=== PATIENT | female | born 1980 ===

== ENCOUNTER 2018-03-01 08:53 | Day surgery (SDC) | payer OTHER ==
[2018-02-27 08:39] VITALS: BMI 28.1
[2018-03-01 09:52] VITALS: BP 123/76; PULSE 71; RESP 18; TEMP 98.1; O2SAT 99
== END 2018-03-01 10:30 | disposition home or self-care (01) ==
LOC: C.SDS 08:53
PROVIDERS: ATTEND Student in an Organized Health Care Education/Training Program
DX: Z53.9 Procedure and treatment not carried out, unspecified reason (principal); S83.232D Complex tear of medial meniscus, current injury, left knee, subsequent encounter; M67.862 Other specified disorders of synovium, left knee; M79.4 Hypertrophy of (infrapatellar) fat pad; M94.262 Chondromalacia, left knee

== ENCOUNTER 2018-03-22 08:11 | Day surgery (SDC) | payer OTHER ==
[2018-02-27 08:39] VITALS: BMI 28.1
[2018-03-22] MEDS ORDERED: ceFAZolin 1 gm FROZEN Premix 2 GM/100 ML ML IVPB ONE (12:14)
[2018-03-22] MEDS ORDERED: Midazolam 2 MG/2 ML VIAL ONE (12:32)
[2018-03-22] MEDS ORDERED: Propofol 10 mg/ml Inj (20 ML) ONE (12:32)
[2018-03-22] MEDS ORDERED: Rocuronium 10 mg/ml (10 ml) ONE (12:32)
[2018-03-22] MEDS ORDERED: Lidocaine Hydrochloride 5 ML INJ ONE (12:39)
[2018-03-22] MEDS ORDERED: ePHEDrine 50 mg/ml Inj ONE (13:46)
[2018-03-22] MEDS ORDERED: Neostigmine Methylsulfate 3mg/3ml Syringe IV ONE ×2 (13:58→14:13)
[2018-03-22] MEDS: HYDROmorphone 0.5 mg/0.5 ml ISec IVP PRN ×5 (14:35→15:35)
[2018-03-22] MEDS ORDERED: HYDROmorphone 0.5 mg/0.5 ml ISec ONE (14:35)
[2018-03-22] MEDS ORDERED: Lactated Ringer's 1,000 ML IV SCH (14:45)
[2018-03-22] MEDS ORDERED: Bupivacaine 0.25% 20 ML INJ IJ ONE (15:48)
--- NOTE | 2018-03-22 16:17 | PCM.ANESB7 ---
Adductor Canal Block - Adductor Canal Block Date of Procedure: 03/22/18 Anesthiologist: Tenzin Pre-Procedure Diagnosis: s/p left knee arthroscopy Procedure Performed: Adductor Canal Block Left - Procedure Adductor Canal Block: Left femoral nerve block, adductor canal approach, done in PACU for post-op pain control. Under sterile conditions, with ultrasound guidance, 30 cc 0.25% bupivacaine injected in 5 cc increments, negative aspiration throughout, 4" block needle. VSS, patient tolerated procedure well. Block requested by Dr. Quiroz.
[2018-03-22] MEDS ORDERED: DiphenhydrAMINE 50 mg/ml Inj IVP STA (16:43)
[2018-03-22] MEDS ORDERED: Lactated Ringer's 500 ML IV ONE (17:30)
[2018-03-22 18:35] VITALS: RESP 16
[2018-03-22 19:04] VITALS: BP 115/61; PULSE 72; TEMP 97.6; O2SAT 100
--- NOTE | 2018-04-10 11:45 | PCM.SURG1 ---
Surgeon's Initial Post Op Note - Surgeon's Notes Surgeon: Solitario Quiroz MD Outside Sales: Maria D Hamilton PA-C Type of Anesthesia: General Endo, Block Regional Pre-Operative Diagnosis: L knee: #1 medial meniscal tear. #2 synovitis. #3 fat pad inflamation Operative Findings: Left knee: #1 medial mensical tear (peripheral red-red zone tear at menisco-capsular junction of mid-body to posterior horn, repairable). #2 lateral meniscal tears (free edge tearing, non-repairable/ hypermobility- peripheral tearing with instability, repairable). #3 3 compatrment synovitis. #4 hypertorphic/inflamed fat pad causing anterior impingement. #5 medial symptomatic plica bands. #6 chondromalacia / chondral injury lateral and medial tibial plateaus grade 2-3 (no full thickness defect seen) Post-Operative Diagnosis: Left knee: #1 medial mensical tear (peripheral red- red zone tear at menisco-capsular junction of mid-body to posterior horn, repairable). #2 lateral meniscal tears (free edge tearing, non-repairable/ hypermobility-peripheral tearing with instability, repairable). #3 3 compatrment synovitis. #4 hypertorphic/inflamed fat pad causing anterior impingement. #5 medial symptomatic plica bands. 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 #2 partial lateral menisectomy w/ stabilization. #3 extensive 3 compartment synovectomy. #4 resection symptomatic medial plica band. #5 resection and debridement anterior fat pad. #6 chondroplasty medial and lateral tibial plateau. #7 intra-articular PRP injection Specimen/Specimens Removed: specimen= none. tourniquet time= 0min. implants= [employer] meniscal repair system, 8 implants for MMR, 3 implants for LM stabilization Estimated Blood Loss: EBL {In ML}: 3 Blood Products Given: N/A Drains Used: No Drains Post-Op Condition: Good Date of Surgery/Procedure: 03/22/18 Time of Surgery/Procedure: 13:00
--- NOTE | 2018-04-11 10:45 | OP ---
PROCEDURE DATE: 03/22/2018 PREOPERATIVE DIAGNOSES: Left knee: 1. Medial meniscal tear. 2. Synovitis. 3. Fat pad inflammation. POSTOPERATIVE DIAGNOSES: Left knee: 1. Medial meniscal tear (peripheral red-red zone tear at the meniscal capsular junction of mid body to posterior horn, repairable) 2. Lateral meniscal tear (free edge tearing, nonrepairable/hypomobility - peripheral tearing with instability, repairable). 3. Three compartment synovitis. 4. Hypertrophic/inflamed fat pad causing anterior impingement. 5. Medial symptomatic plica bands. 6. Chondromalacia/chondral injury to lateral and medial tibial plateau, grade 2 to 3 (no full thickness defect seen). PROCEDURES: Left knee arthroscopic: 1. All-inside medial meniscal repair. 2. Partial lateral meniscectomy with stabilization. 3. Extensive three compartment synovectomy. 4. Resection of symptomatic medial plica band. 5. Resection and debridement of anterior fat pad. 6. Chondroplasty, medial and lateral tibial plateau. 7. Intraarticular PRP injection. SURGEON: Solitario Quiroz MD MERCHANDISE CLERK: Maria D Hamilton PA-C JUSTIFICATION FOR MERCHANDISE CLERK: Maria D Hamilton is a certified physician assistant director of nursing whose skilled surgical services were an absolute necessity for successful completion of the procedure. As he provided skilled surgical assistance with positioning of the patient, positioning of the extremity, management of surgical trevino, retraction of neurovascular structures, facilitating all-inside medial meniscal repair and lateral meniscus stabilization, handling of arthroscopic equipment facilitating extensive synovectomy and debridement, wound closure, fitting and placement of postop hinge knee brace. Maria D Hamilton was present for the entire case who was an absolute necessity for successful completion of the procedure. TYPE OF ANESTHESIA: General endotracheal anesthesia with a postop regional nerve block placed by anesthesia staff in PACU. SPECIMEN: None. TOURNIQUET TIME: Zero minutes. COMPLICATIONS: None. ESTIMATED BLOOD LOSS: 3 mL. DRAINS: None. DISPOSITION: The patient was extubated and transferred to PACU in stable condition having tolerated the procedure well. IMPLANTS: [employer] All-inside Sequent meniscal repair system with placement of eight implants for medial meniscal repair and three implants for lateral meniscus stabilization. INDICATIONS FOR SURGERY: The patient is a 36-year-old female with no significant past medical history who presented to the office for the first time with left knee pain and lower back pain since an injury at work on 04/12/2017 under my care on 07/23/2017 for the first time. This is a Workmen's comp case with the date of injury at work for 04/12/2017. 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 This resulted in immediate lower back/lumbar spine pain and left knee pain since 04/12/2017 while being injured at work. 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 Her pain continue to increase, and she states that she has been walking with a limp. Initially, the left knee pain was rated 6/10, but progressed to as high as 9/10 with increased activity, and at the end of the workday. She underwent an MRI of the left knee on 05/26/2017, which was read as small knee effusion, no meniscal or ligament tear. Intact ACL. No fracture or cartilage defect. In reviewing the MRI with her, I felt that there was signal change in the periphery of the medial meniscus, but had to respect the radiologist's report. With a diagnosis of synovitis and fat pad inflammation, which she did present clinically as well as the clinical medial meniscal tear, we started conservative treatments. All through her treatment time, the patient was working and did not attempt to miss work time. She underwent conservative treatments in the form of physical therapy, antiinflammatory medication in the form of Mobic, antiinflammatory pain cream, Neoprene hinged knee brace for stability, cortisone mixture injections in the office on 07/23/2017, 11/29/2017, with the report of complete resolution of pain after both injections in the office. Each injection resulted in complete resolution of pain that would last approximately four weeks with progressive return of pain to baseline level within six weeks of injection. Consistently, she reported medial joint line pain pointing to the location of the medial meniscus with a positive Allison both medially and laterally and positive tenderness to palpation along the anterior fat pad on both sides of the patellar tendon anteriorly. Finally after exhausting conservative treatment under my care for almost seven months and almost one year post injury with no overall significant improvement, the patient was indicated for a diagnostic arthroscopy with a likely medial meniscal repair and extensive synovectomy and debridement and all related indicated arthroscopic procedures including debridement of an inflamed hypertrophic fat pad and lateral meniscus repair. The risks, benefits, and alternatives of the procedure was discussed in length with the patient with the risk including, not limited to infection, neurovascular damage, need for further surgery, failure of repair, failure of implants, development of chronic pain and disability, development of blood clots including DVT and PE, anesthesia reactions including and cardiopulmonary compromise in the perioperative period. After answering all of her questions, she stated that she understood the risks and wished to proceed with surgery. She watched the surgical animation videos and diagnostic animation videos and stated that she understood the procedure as well as the diagnosis. I reviewed at length with her the postop rehabilitation protocol and she stated that she understood the need for compliance with the rehab protocol in order to maximize chance of having successful outcome after surgery. She was referred to primary care physician for preadmission testing and medical clearance and the procedure was scheduled at [facility] initially 03/01/2018, but we did not obtain Worker's Comp approval in time and was rescheduled for 03/22/2018 for which we did obtain Worker's Comp approval for the diagnostic arthroscopy and possible meniscus repair and synovectomy debridement. PROCEDURE IN DETAIL: The patient was identified in the preoperative holding area and the left knee was marked for surgery. Once again as described above, the risks, benefits and alternatives of the procedure were discussed at length with the patient and informed consent was obtained. After a brief discussion with anesthesia staff, the patient was taken to the operating room and placed on the well-padded operating room table with all bony prominences and superficial neurovascular structures well padded. An initial time-out was done. IV perioperative antibiotic were administered. General anesthesia was administered without difficulty or complication. Examination under anesthesia was then carried out. EXAMINATION UNDER ANESTHESIA: Left knee with full range of motion compared to the contralateral knee, no swelling, no warmth, no erythema, skin intact; no evidence of instability with negative anterior drawer, negative Kaylen, negative posterior drawer, negative reverse Kaylen, negative pivot shift, negative reverse pivot shift, negative posterior lateral corner drawer sign, negative dial test, negative opening to medial lateral joint line at 0 and 30 degrees of varus or valgus stress, patella with normal tracking. There was evidence of symptomatic medial plica band engaging the inferior pole of the patella and the medial femoral condyle at 30 degrees flexion consistently throughout arc of range of motion. CONTINUATION OF PROCEDURE: Tourniquet was placed high on the left thigh, but never inflated. Left lower extremity was prepped and draped in standard sterile fashion. A final time-out was done with the surgeon, anesthesia staff, OR staff, all in agreement with the patient, procedure being done, extremity being operated on. A 50 mL of normal saline was used to insufflate the knee joints. Stab incision was made at optimal placement for anterolateral portals through skin down subcutaneous tissues down to the level of the capsule. Blunt arthroscopic trocar and cannula were inserted into the suprapatellar pouch, and the knee was insufflated with arthroscopic fluid. Arthroscopic camera was inserted in with the use of spinal needle localization. Anterior medial portal position was identified and stab incision was made through skin, down the subcutaneous tissue down to the level of capsule. An accessory cannula was then inserted through the anteromedial portal, and the knee joint was copiously irrigated for better visualization and removal of synovial debris. Diagnostic arthroscopy was then carried out with the use of an arthroscopic probe. DIAGNOSTIC ARTHROSCOPY: Attention was first turned towards the suprapatellar pouch with no evidence of adhesions or loose bodies. Attention was then turned towards the patellofemoral joint where intact patella and trochlea were seen with a well-seated patellofemoral joint with no evidence of subluxation or dislocation. Attention was then turned towards the medial gutter where immediately seen was a thickened hypertrophic highly symptomatic thickened plica band that appeared to be inflamed extending from the inferomedial aspect of the patella to the medial retinaculum abutting the medial femoral condyle. Attention was then turned towards the medial compartments where after careful evaluation at the periphery of the medial meniscus indeed, there was a 2 cm peripheral red-red zone injury/tear/meniscal capsular separation at the junction of the mid body and posterior horn that was amenable to repair with good quality tissue. Medial femoral condyle exhibited no evidence of cartilage injury. Medial tibial plateau exhibited grade 2 to 3 chondromalacia with no full thickness defect seen at patchy areas throughout the plateau. Attention then turned towards the intercondylar notch, where intact ACL and PCL were seen. Attention was then turned towards the lateral compartment where immediately seen was a free edge complex tear of the lateral meniscus at the junction of the mid body and posterior horn. After careful probing and examination, it was determined that the lateral meniscus had a peripheral tear as well at the anterior aspect of the popliteal hiatus with significant hypermobility, inability to sublux the posterior horn of the lateral meniscus beyond the mid point of the lateral femoral condyle. Lateral femoral condyle exhibited normal cartilage and no evidence of injury. Lateral tibial plateau exhibited patchy areas of grade 2 to 3 chondromalacia/chondral injury with no full thickness defect seen. CONTINUATION OF PROCEDURE: Arthroscopic All-inside medial meniscal repair: With the use of the arthroscopic probe, the 2 cm peripheral tear was carefully evaluated at the meniscal capsular junction as a meniscal capsular separation/red-red zone tear with good quality meniscal tissue amenable to repair in stabilization. With the use of the All-inside Meniscal Repair System from [employer], the sequence meniscal repair system, four implants were placed starting at the anterior aspect of the tear with good capsular-sided fixation resulting in alternating vertical and horizontal mattress sutures being placed, three in total at the superior aspect of the tear with good stability achieved. These steps were then repeated at the inferior aspect of the tear restoring hoop stresses and repairing both the superior and inferior aspect of this complete tear through the periphery of the medial meniscus posteromedial corner separation from the posteromedial capsule. With the arthroscopic probe, the construct was tested and found to be stable with good stability achieved. A successful all-Inside medial meniscal repair was completed. ARTHROSCOPIC PARTIAL LATERAL MENISCECTOMY AND STABILIZATION: With the use of arthroscopic shaver, radiofrequency ablation and meniscal biter, the partial lateral meniscectomy was carried out of the complex free edge tearing that was not amenable to repair establishing a smooth contour and removing the unstable fragments resecting approximately 5% to 10% of lateral meniscus overall. Once a smooth contour was established, we then proceeded to identify the instability points of the lateral meniscus that results in the hypermobility that is seen. With the use of the [employer] All-inside Meniscal Repair System, three implants were placed just anterior to the popliteal hiatus where a peripheral tear was identified that appeared to be propagating resulting in the hypermobility of the lateral meniscus. Three implants were placed with alternating horizontal and vertical mattress sutures resulting in good capsular-sided fixation and stability. Lateral meniscus was tested again and indeed the hypermobility was negated. Partial lateral meniscectomy with stabilization was achieved. ARTHROSCOPIC CHONDROPLASTY/MEDIAL AND LATERAL TIBIAL PLATEAU: With the use of arthroscopic shaver and radiofrequency ablation, a chondroplasty of the medial tibial plateau and lateral tibial plateau grade 2 to 3 chondromalacia was carried out establishing a smooth contour to the cartilage and removing the unstable cartilage fragments and fibrillation. Once smooth contour to each medial and lateral tibial plateau was achieved, we then turned our attention to extensive synovectomy. ARTHROSCOPIC EXTENSIVE SYNOVECTOMY AND DEBRIDEMENT: With the use of arthroscopic shaver and radiofrequency ablation, extensive synovectomy was carried out beyond what is consider usual and customary for better visualization during arthroscopic procedures as the significant amount of surgical time was dedicated to this portion of the procedure to decrease the pain generated for the patient. As stated in the diagnostic arthroscopy, there was indeed a thickened hypertrophic highly symptomatic medial plica abutting the medial femoral condyle as well as hypertrophic and inflamed fat pad causing anterior impingement, which the patient was complaining from preoperatively on clinical presentation consistently. There was also three compartment synovitis with inflamed tissue throughout the knee joint. With the use of arthroscopic shaver and radiofrequency ablation, extensive synovectomy was carried out including three compartment synovectomy, debridement and resection of the hypertrophic fat pad. We will maintain good hemostasis treating the anterior impingement, resection and debridement of the symptomatic medial plica band. We will maintain a good hemostasis. INTERARTICULAR PRP INJECTION: Final arthroscopic imaging was taken of the extensive synovectomy, chondroplasty, medial and lateral tibial plateau, medial meniscal repair, partial lateral meniscectomy with stabilization. All arthroscopic debris and fragments were removed as well as arthroscopic fluids from the knee joint. With the help of anesthesia staff, 10 mL of PRP was obtained. After a peripheral venous stick was carried out and the blood was spun in the centrifuge from [employer] yielding 10 mL of PRP. Under direct visualization, the PRP was injected intraarticular in its entirety. The arthroscopic portals were then reapproximated with 2-0 Vicryl suture for deep tissue followed by 3-0 Monocryl suture for skin. Sterile dressings were applied. A layer of sterile cast padding was then placed from the toes up to the superior thigh, followed by a layer of compressive Yannick wrap from the toes up to the superior thigh. A postop hinge knee brace locked in extension, 0 degrees were then fitted and placed on the patient's left knee/left lower extremity. Once the brace was in position and locked at 0 degrees extension, the patient was extubated and transferred to PACU in stable condition and tolerated procedure well. JUSTIFICATION AND RATIONALE FOR BILLING AND CODIN. An all-inside medial meniscal repair was carried out successful, and therefore, was coded and billed. 2. Arthroscopic partial lateral meniscectomy was carried out with the main stay of treatment being partial lateral meniscectomy with a concomitant stabilization, and therefore, partial lateral meniscectomy was coded and billed. 3. Extensive synovectomy was carried out that was beyond what is consider usual and customary for better visualization during arthroscopic procedure requiring a significant amount of surgical time including three compartment synovectomy, resection and debridement of hypertrophic fat pad causing anterior impingement which is symptomatic for the patient, resection and debridement of highly symptomatic medial plica band. Therefore, an extensive synovectomy was coded and billed. 4. Chondroplasty of medial and lateral tibial plateau cartilage injury was carried out successfully but is considered part of the partial lateral meniscectomy and inclusive to the code, and therefore, was not coded and billed. 5. Intraarticular PRP injection was carried out successfully, and therefore, it was coded and billed. 6. A postop hinged knee brace provided by my office was fitted and placed on the patient locked in 0 degrees of extension at the end of the procedure to facilitate weightbearing as tolerated and protecting the medial meniscus repair and lateral meniscus stabilization while allowing for safe ambulation and maximize the chance of having successful outcome after surgery. Therefore, a postop hinged knee brace was coded and billed. DISPOSITION: The patient was extubated and transferred to PACU in stable condition, having tolerated the procedure well. She will be discharged home when she recovers from anesthesia. She was given a prescription for pain medication. She has been given a prescription for Lovenox for DVT prophylaxis to start once daily subcutaneous injection 40 mg starting postoperative day #1. She will follow up in my office at [facility] within one week and already has a postoperative appointment set up. She is instructed to do weightbearing as tolerated to the left lower extremity with the postop hinged knee brace locked at 0 degrees extension. She is instructed on how to unlock the brace to work on gentle range of motion over the weekend and will start physical therapy as soon as possible. Solitario Quiroz MD
== END 2018-03-22 19:11 | disposition home or self-care (01) ==
LOC: C.SDS 08:11
PROVIDERS: ATTEND Student in an Organized Health Care Education/Training Program
DX: S83.232D Complex tear of medial meniscus, current injury, left knee, subsequent encounter (principal); S83.272D Complex tear of lateral meniscus, current injury, left knee, subsequent encounter; M67.862 Other specified disorders of synovium, left knee
CPT/HCPCS: 29876; 29882; 97116; 97161; C1751; G8978; G8979; G8980; J0171; J0690; J1170; J1200; J1885; J2250; J2405; J2704; J2710; J3010; J7120